=== PATIENT | female | born 1965 ===

== ENCOUNTER 2022-11-04 05:05 | Day surgery (SDC) | payer OTHER ==
[2022-11-03 13:24] VITALS: BMI 36.0
[2022-11-04 09:34] VITALS: TEMP 98.7
[2022-11-04 09:59] VITALS: BP 152/81; PULSE 71; RESP 16
== END 2022-11-04 10:10 | disposition home or self-care (01) ==
LOC: JASU-ENDO 05:05
PROVIDERS: ATTEND Student in an Organized Health Care Education/Training Program
PROC: 0DBL8ZX Excision of Transverse Colon, Via Natural or Artificial Opening Endoscopic, Diagnostic (ICD-10-PCS; 2022-11-04)
PROC: 0DBN8ZX Excision of Sigmoid Colon, Via Natural or Artificial Opening Endoscopic, Diagnostic (ICD-10-PCS; 2022-11-04)
PROC: 0DBP8ZX Excision of Rectum, Via Natural or Artificial Opening Endoscopic, Diagnostic (ICD-10-PCS; 2022-11-04)
PROC: 0DBB8ZX Excision of Ileum, Via Natural or Artificial Opening Endoscopic, Diagnostic (ICD-10-PCS; 2022-11-04)
PROC: 0DB48ZX Excision of Esophagogastric Junction, Via Natural or Artificial Opening Endoscopic, Diagnostic (ICD-10-PCS; 2022-11-04)
PROC: 0DB68ZX Excision of Stomach, Via Natural or Artificial Opening Endoscopic, Diagnostic (ICD-10-PCS; 2022-11-04)
PROC: 0DBK8ZX Excision of Ascending Colon, Via Natural or Artificial Opening Endoscopic, Diagnostic (ICD-10-PCS; principal; 2022-11-04 09:15)
DX: Z12.11 Encounter for screening for malignant neoplasm of colon (principal); K29.50 Unspecified chronic gastritis without bleeding; K21.00 Gastro-esophageal reflux disease with esophagitis, without bleeding; Z98.84 Bariatric surgery status; K57.30 Diverticulosis of large intestine without perforation or abscess without bleeding; Z98.0 Intestinal bypass and anastomosis status; R19.7 Diarrhea, unspecified
CPT/HCPCS: 88305-TC; 88342-TC